=== PATIENT | female | born 1985 | race Two or more races ===

== ENCOUNTER 2017-04-21 09:06 | Emergency (ER) | payer OTHER ==
[~2017-04-21] VITALS: Ht 154.9 cm; Wt 50.0 kg
[~2017-04-21 09:06] MED LIST: ACYCLOVIR800 MG OR; ALDACTONE25 MG OR; AMLODIPINE2.5 MG OR; CALCITRIOL0.25 MCG OR; CALCIUM 500 + D PO; CARVEDILOL25 MG OR; CELLCEPT250 MG PO; CELLCEPT500 MG OR; CIPROFLOXACN500 MG PO; COUMADIN4 MG OR; COZAAR50 MG OR; DICLOXACILL250 MG PO; DIGITEK0.125 MG OR; KLOR-CON 1010 ME1 OR; LASIX 20 MG TAB20 MG OR; LEVOTHYROXIN112 MC1 PO; LEVOTHYROXIN75 MC1 PO; LEVOTHYROXIN75 MCG PO; PREDNISODT15; PROCRIT 1010000 U/ML; RAYOS1 MG PO
[2017-04-21 10:13] LABS: HEMATOCRIT 31.4 % (37.0-47.0); HEMOGLOBIN 9.9 g/dl (12.0-16.0); IMMATURE GRANULOCYTES 0.3 % (0.0-1.0); MEAN CELL VOLUME 89.7 fL CALC (80.0-100.0); MEAN CORPUSCULAR HGB 28.3 pG CALC (26.0-32.0); MEAN CORPUSCULAR HGB CONC 31.5 g/L CALC (32.0-36.0); NEUT# 2.14 thou/uL (2.00-7.15); RED BLOOD COUNT 3.5 mill/uL (4.20-5.60); RED CELL DISTRI WIDTH 19.5 % (11.5-15.5)
[2017-04-21 10:18] LABS: URINE BILIRUBIN - DIPSTICK NEGATIVE (NEGATIVE); URINE BLOOD DIPSTICK MODERATE (NEGATIVE); URINE CLARITY CLEAR; URINE COLOR YELLOW; URINE GLUCOSE - DIPSTICK NEGATIVE (NEGATIVE); URINE KETONE NEGATIVE (NEGATIVE); URINE LEUK ESTERASE NEGATIVE (NEGATIVE); URINE NITRITE - DIPSTICK NEGATIVE (Negative); URINE PROTEIN - DIPSTICK >=300 mg/dL (NEG-TRACE); URINE UROBILINOGEN - DIPSTICK 0.2 E.U./dL (0.2)
[2017-04-21 10:26] LABS: URINE SQUAMOUS EPITHELIAL CELL FEW EPI/hpf (0-FEW); URINE WBC 0-2 WBC/hpf (0-5)
[2017-04-21 10:35] LABS: ALBUMIN 2.6 g/dL (3.2-5.0); BILIRUBIN, TOTAL 0.3 mg/dL (0.0-1.4); CALCIUM 7.9 mg/dL (8.4-10.2); CREATININE 2.3 mg/dL (0.5-1.0); POTASSIUM 4.8 mmol/l (3.5-5.1); TOTAL PROTEIN 6.9 g/dL (6.3-8.2)
[2017-04-21 13:03] VITALS: BP 118/66
== END 2017-04-21 13:05 | disposition home or self-care (01) | DRG 684 ==
LOC: ED 09:06
PROVIDERS: Emergency Medicine
DX: N17.9 Acute kidney failure, unspecified (principal); M32.14 Glomerular disease in systemic lupus erythematosus; R60.0 Localized edema; Z86.718 Personal history of other venous thrombosis and embolism; Z91.14 Patient's other noncompliance with medication regimen